=== PATIENT | male | born 1980 | race Caucasian/White ===

== ENCOUNTER → 2018-07-16 | Outpatient (CLI) | payer BC ==
[~2018-07-16] MED LIST: ADDERALL5 MG PO; B-12100 MCG PO; CEPHALEXIN500 M1 PO; GINGKO-GO120 MG PO; LOPRESSOR50 MG PO; MULTIPLE VITAMI1 CAP PO; POTASSIUM75 MG PO; VICODIN 5/5001 UDTAB PO; VITAMIN C500 MG PO; [UNRECOGNIZED DRUG - OTHER]
== END ==
LOC: COL.RAD 12:45
DX: K76.89 Other specified diseases of liver (principal); N28.1 Cyst of kidney, acquired; Z82.71 Family history of polycystic kidney